=== PATIENT | female | born 1955 | race African-American/Black ===

== ENCOUNTER 2023-09-02 12:02 | Emergency (ER) | payer OTHER ==
[2023-09-02 14:11] LABS: Absolute Basophils 0.1 K/uL (0-0.5); Absolute Eosinophils 0.2 K/uL (0-0.5); Absolute Monocytes 0.5 K/uL (0.1-1.3); Absolute Neutrophil 3.8 K/uL (1.8-8.0); Basophils % 0.9 % (0-1.3); Eosinophils % 2.5 % (0-4.4); Hematocrit 44.9 % (36.0-45.0); Lymphocytes % 30.9 % (15.3-44.8); MCH 31.1 pg (27.0-35.0); MCHC 33.4 g/dL (32.0-36.0); MCV 93.2 fL (80-100); MPV 9.5 fL (7.6-11.3); Monocytes % 7.6 % (3.3-12.3); Neutrophils % 58.1 % (41.7-73.7); Platelets 205 thou/uL (152-406); RBC Red Blood Cell Count 4.81 M/uL (3.86-4.86); Red Cell Distribution Width 13.9 % (12.1-15.2)
[2023-09-02 14:25] LABS: Albumin 4.4 g/dL (3.4-5.0); Anion Gap 5.8 mEq/L (5.0-15.0); Bilirubin Total 0.7 mg/dL (0.2-1.0); Globulin 4.4 g/dL (2.3-3.5); Potassium 3.8 mEq/L (3.5-5.1); Protein, Total 8.8 g/dL (6.4-8.2)
[2023-09-02] MEDS ORDERED: ONDANSETRON 4 MG/2 ML VIAL ONE (14:31)
[2023-09-02] MEDS ORDERED: FAMOTIDINE 20 MG/2 ML VIAL IV ONE (14:31)
[2023-09-02] MEDS ORDERED: NA CHLORIDE 0.9% 1,000 ML ONE (14:31)
--- NOTE | 2023-09-02 15:08 | RAD REPORT ---
EXAM DESCRIPTION: CT - Abdomen Pelvis W Contrast - 09/02/2023 2:36 pm CLINICAL HISTORY: Abdominal pain COMPARISON: none. TECHNIQUE: Computed axial tomography of the abdomen pelvis was obtained. 100 cc Isovue-300 was admin istered intravenously. Oral contrast was not requested which limits evaluation of bowel and appendix All CT scans are performed using dose optimization technique as appropriate and may include automated exposure control or mA/KV adjustment according to patient size. FINDINGS: The liver, spleen, pancreas, adrenal and kidneys appear unremarkable. There is no evidence of diverticulitis. Normal appendix 4.5 centimeter round structure left aspect of uterus Small umbilical hernia Fluid filled structure lower chest presumably dilated esophagus rather than hiatal hernia. IMPRESSION: Fluid filled structure lower chest presumably dilated esophagus rather than hiatal herni a. 4.5 centimeter round structure left aspect of the uterus may represent a fibroid or less likely an ad nexal mass. Further evaluation with ultrasound recommended
--- NOTE | 2023-09-02 15:48 | EDPHYS ---
Physician Documentation [facility] Name: Angelia Huerta Age: 68 yrs Sex: Female : 1955 Arrival Date: 09/02/2023 Time: 12:02 Bed 2 Private MD: ED Physician Andres Hooper HPI: 09/01 12:51 This 68 yrs old Black Female presents to ER via Ambulatory with complaints of Vomiting. sb4 12:51 Patient states that she has been experiencing nausea and vomiting since last night. She sb4 states that she has had some problems with regurgitating food for some time, but never this bad. She denies any diarrhea or fever. She called Dr. Patel's office this morning and they could not get her in until Saturday. She went to urgent care and was sent here for further evaluation. Historical: - Allergies: 12:51 No Known Allergies; ph - PMHx: 12:51 Glaucoma; High Cholesterol; Hypertensive disorder; ph - Immunization history:: Adult Immunizations unknown. - Infectious Disease History:: Denies. - Social history:: Smoking status: Patient denies any tobacco usage or history of. ROS: 12:51 Constitutional: Negative for fever, chills, and weight loss, sb4 12:51 Abdomen/GI: Positive for abdominal pain, nausea and vomiting, 12:51 All other systems are negative, Exam: 12:51 Head/Face: Normocephalic, atraumatic. Eyes: Extra-ocular motions intact. Periorbital sb4 areas with no swelling, redness, or edema. ENT: Mucous membranes moist. Cardiovascular: Regular rate and rhythm with a normal S1 and S2. Respiratory: Lungs have equal breath sounds bilaterally, clear to auscultation and percussion. No rales, rhonchi or wheezes noted. No increased work of breathing, no retractions or nasal flaring. Abdomen/GI: Soft, non-tender, no distension. Skin: Warm, dry with normal turgor. Normal color with no rashes, no lesions, and no evidence of cellulitis. MS/ Extremity: Pulses equal, no cyanosis. Neurovascular intact. Full, normal range of motion. 12:51 Constitutional: The patient appears alert, awake, Tearful Vital Signs: 12:48 BP 203 / 95; Pulse 99; Resp 18; Temp 97.8; Pulse Ox 100% on R/A; Weight 72.57 kg; ph Height 5 ft. 5 in. ; 15:22 BP 162 / 86; Pulse 68; Resp 16; Pulse Ox 98% ; ko1 18:42 BP 142 / 92; Pulse 71; Resp 18; Pulse Ox 100% on R/A; ld1 12:48 Body Mass Index 26.63 (72.57 kg, 165.1 cm) ph MDM: 12:15 Patient medically screened. [facility] 15:47 Data reviewed: vital signs, nurses notes, lab test result(s), radiologic studies. 4 Counseling: I had a detailed discussion with the patient and/or guardian regarding the historical points, exam findings, and any diagnostic results supporting the discharge/admit diagnosis, lab results, radiology results, the need to transfer to another facility, [facility] does not immediately have the required specialist. 15:48 Data reviewed: I have discussed the patient's presentation/case with the attending [facility] Emergency Department Physician;. Historians other than the Patient: Spouse/Significant Other: . ED course: patient cannot tolerate PO, is regurgitating water. CT shows esophageal dilation. GI unavailable, patient requires transfer. she requests transfer to [facility]. 09/01 12:51 Order name: CBC with Diff; Complete Time: 14:17 [facility] 09/01 12:51 Order name: CMP; Complete Time: 14:26 [facility] 09/01 12:51 Order name: Lipase; Complete Time: 14:26 [facility] 09/01 12:51 Order name: CT Abd/Pelvis - IV Contrast Only; Complete Time: 15:09 [facility] 09/01 12:51 Order name: IV Saline Lock; Complete Time: 14:03 [facility] 09/01 12:51 Order name: Labs collected and sent; Complete Time: 14: [facility] 09/01 15:10 Order name: PO challenge; Complete Time: 15:31 sb4 Administered Medications: 14:51 Drug: NS 0.9% IV 1000 ml IV at 1 bolus Per protocol; 1000 mL bolus Route: IV; Rate: 1 ko1 bolus; Site: left antecubital; 16:13 Follow up: Response: No adverse reaction; IV Status: Completed infusion; IV Intake: ko1 1000ml 14:51 Drug: Famotidine IVP 20 mg IVP once; dilute with 10 mL 0.9% NaCl; give over 2 minutes ko1 Route: IVP; Site: left antecubital; 15:06 Follow up: Response: No adverse reaction ko1 14:51 Drug: Ondansetron IVP 4 mg IVP once; over 2 minutes Route: IVP; Site: left antecubital; ko1 15:06 Follow up: Response: No adverse reaction ko1 Disposition: 18:21 Co-signature as Attending Physician, Andres Hooper MD I reviewed the patient's care rt provided by the Advanced Practice Provider and agree with the diagnosis and treatment plan. Disposition Summary: 09/02/23 15:48 Transfer Ordered Notes: Transfer Location: [facility] sb4 Reason: Higher level of care sb4 Condition: Fair sb4 Problem: new sb4 Symptoms: are unchanged sb4 Accepting Physician: GI(09/02/23 19:42) tm6 Diagnosis - Esophageal dilation sb4 - PO intolerance sb4 Discharge Instructions: - Discharge Summary Sheet sb4 Forms: - Medication Reconciliation Form sb4 - SBAR form sb4 Signatures: Dispatcher [employer] EDMS Caren Wyatt, RN RN aJnine Gonzales RN RN ko1 Raeann Dietz PA-C PAMelany sb4 Andres Hooper MD MD rt Sadie Jacobo RN RN tm6 Corrections: (The following items were deleted from the chart) 12:52 12:52 CBC+H.LAB.BRZ ordered. EDMS EDMS 12:52 12:52 COMPREHENSIVE METABOLIC PANEL+C.LAB.BRZ ordered. EDMS EDMS 12:52 12:52 LIPASE+C.LAB.BRZ ordered. EDMS EDMS 16:38 12:51 Patient states that she has been experiencing nausea and vomiting since last sb4 night. She thinks that maybe she ate some bad food. She denies any diarrhea or fever. She denies any prior GI issues. She called Dr. Patel's office this morning and they could not get her in until Saturday. She went to urgent care and was sent here for further evaluation. sb4 19:42 15:48 GI sb4 tm6
--- NOTE | 2023-09-02 15:48 | ER ---
Nurse's Notes [facility] Name: Angelia Huerta Age: 68 yrs Sex: Female : 1955 Arrival Date: 09/02/2023 Time: 12:02 Bed 2 Private MD: Diagnosis: Esophageal dilation;PO intolerance Presentation: 09/01 12:48 Chief complaint: Patient states: " Every time I eat or drink it comes back up." ph Symptoms started last night. States that she called GI but they can't see her until Sat. Pt hypertensive in triage, states that she has not taken her BP medication today. Coronavirus screen: Vaccine status: Patient reports receiving the 2nd dose of the covid vaccine. Ebola Screen: No symptoms or risks identified at this time. Initial Sepsis Screen: Does the patient meet any 2 criteria? No. Patient's initial sepsis screen is negative. Does the patient have a suspected source of infection? No. Patient's initial sepsis screen is negative. Risk Assessment: Do you want to hurt yourself or someone else? Patient reports no desire to harm self or others. Onset of symptoms was September 02, 2023. 12:48 Method Of Arrival: Ambulatory ph 12:48 Acuity: GLADIS 2 ph Triage Assessment: 12:51 General: Appears in no apparent distress. Behavior is cooperative, anxious. Pain: ph Denies pain. GI: Reports nausea, vomiting. Historical: - Allergies: 12:51 No Known Allergies; ph - PMHx: 12:51 Glaucoma; High Cholesterol; Hypertensive disorder; ph - Immunization history:: Adult Immunizations unknown. - Infectious Disease History:: Denies. - Social history:: Smoking status: Patient denies any tobacco usage or history of. Screenin:59 [facility] ED Fall Risk Assessment (Adult) History of falling in the last 3 months, ko1 including since admission No falls in past 3 months (0 pts) Confusion or Disorientation No (0 pts) Intoxicated or Sedated No (0 pts) Impaired Gait No (0 pts) Mobility Assist Device Used No (0 pt) Altered Elimination No (0 pt) Score/Fall Risk Level 0 - 2 = Low Risk. Abuse screen: Denies threats or abuse. Denies injuries from another. Nutritional screening: No deficits noted. Tuberculosis screening: No symptoms or risk factors identified. Assessment: 14:32 Reassessment: Pt transported to CT. jl7 14:59 General: Appears in no apparent distress. Behavior is calm, cooperative, appropriate ko1 for age. Pain: Denies pain. Neuro: No deficits noted. Cardiovascular: No deficits noted. Respiratory: No deficits noted. GI: Abdomen is flat, non-distended, Reports intolerance of fluids, intolerance of food, nausea, vomiting. : No deficits noted. EENT: No deficits noted. Derm: No deficits noted. Musculoskeletal: No deficits noted. 15:45 Reassessment: Patient appears in no apparent distress at this time. No changes from ld1 previously documented assessment. Patient and/or family updated on plan of care and expected duration. Pain level reassessed. Pt unable to hold down liquid. Notified ERP. 16:50 Reassessment: Patient appears in no apparent distress at this time. No changes from ld1 previously documented assessment. 18:43 Reassessment: Patient appears in no apparent distress at this time. No changes from ld1 previously documented assessment. Patient and/or family updated on plan of care and expected duration. Pain level reassessed. 18:50 Reassessment: Called patient report at 1850. ld1 19:42 Reassessment: Patient appears in no apparent distress at this time. patient picked up tm6 by [facility] for transfer. Vital Signs: 12:48 BP 203 / 95; Pulse 99; Resp 18; Temp 97.8; Pulse Ox 100% on R/A; Weight 72.57 kg; ph Height 5 ft. 5 in. ; 15:22 BP 162 / 86; Pulse 68; Resp 16; Pulse Ox 98% ; ko1 18:42 BP 142 / 92; Pulse 71; Resp 18; Pulse Ox 100% on R/A; ld1 12:48 Body Mass Index 26.63 (72.57 kg, 165.1 cm) ph ED Course: 12:03 Patient arrived in ED. rg4 12:04 Raeann Dietz PA-C is PHCP. sb4 12:04 Andres Hooper MD is Attending Physician. sb4 12:51 Triage completed. ph 12:51 Arm band placed on Patient placed in waiting room, Patient notified of wait time. ph 14:03 CBC with Diff Sent. bc6 14:03 CMP Sent. bc6 14:03 Lipase Sent. bc6 14:03 Initial lab(s) drawn, by mo, sent to lab. Inserted saline lock: 20 gauge in left bc6 antecubital area, using aseptic technique. Blood collected. 14:38 CT Abd/Pelvis - IV Contrast Only In Process Unspecified. EDMS 14:52 Janine Gonzales, RN is Primary Nurse. ko1 14:59 Patient has correct armband on for positive identification. Placed in gown. Bed in low ko1 position. Call light in reach. Side rails up X2. Provided Education on: labs, meds, call light. Pulse ox on. NIBP on. Door closed. Noise minimized. Lights dimmed. Warm blanket given. Pillow given. 14:59 No provider procedures requiring assistance completed. ko1 16:44 initiated transfer to [facility], no gi electrical continuity tester at [place] per Patricia, initiated bd transfer to [facility]. 19:39 Patient transferred, IV remains in place. tm6 Administered Medications: 14:51 Drug: NS 0.9% IV 1000 ml IV at 1 bolus Per protocol; 1000 mL bolus Route: IV; Rate: 1 ko1 bolus; Site: left antecubital; 16:13 Follow up: Response: No adverse reaction; IV Status: Completed infusion; IV Intake: ko1 1000ml 14:51 Drug: Famotidine IVP 20 mg IVP once; dilute with 10 mL 0.9% NaCl; give over 2 minutes ko1 Route: IVP; Site: left antecubital; 15:06 Follow up: Response: No adverse reaction ko1 14:51 Drug: Ondansetron IVP 4 mg IVP once; over 2 minutes Route: IVP; Site: left antecubital; ko1 15:06 Follow up: Response: No adverse reaction ko1 Medication: 14:59 VIS not applicable for this client. ko1 Intake: 16:13 IV: 1000ml; Total: 1000ml. ko1 Outcome: 15:48 ER care complete, transfer ordered by . sb4 19:39 Transferred by ground EMS tm6 19:39 Condition: stable 19:39 Instructed on the need for transfer, 19:42 Patient left the ED. tm6 Signatures: Dispatcher [employer] EDMS Valeria Serrano Patricia, RN RN ph Garcia, Rubi rg4 Nanda Bolden RN RN jl7 Nila Drummond RN RN ld1 Janine Gonzales, RN RN mingo1 Raeann Dietz, PANishaC PA-C sb4 Veronika Sutherland bc6 Sadie Jacobo, RN RN tm6
[2023-09-03 02:49] VITALS: BP 142/92; TEMP 97.8; O2SAT 100
== END 2023-09-02 19:42 | disposition short-term general hospital (02) ==
LOC: ER 12:02
DX: K22.89 Other specified disease of esophagus (principal); K90.49 Malabsorption due to intolerance, not elsewhere classified
CPT/HCPCS: 96361; 85025; 36415; 83690; 80053; 74177; 96375; 96374; 99285; Q9967; J2405; J7030